=== PATIENT | male | born 1965 | race Caucasian/White ===

== ENCOUNTER 2021-01-16 13:07 | Emergency (ER) | payer OTHER ==
[2021-01-16 14:17] LABS: BASOPHIL 0.4 % (0-2); EOSINOPHIL 5.8 % (0-5); HCT 40.2 % (42.0-52.0); HGB 13.8 g/dl (13.2-18.0); MCH 29.9 pg (25.0-31.0); MCHC 34.3 g/dL (32.0-36.0); MCV 87.2 fL (78.0-100.0); MONOCYTE 7.5 % (0-12); MPV 10.8 fL (6.0-9.5); NRBC 0; PLT 193 K/uL (150-400); RBC 4.61 M/uL (4.70-6.00); RDW 13.6 % (11.5-14.0); WBC 10.6 K/uL (4.0-10.5)
[2021-01-16 14:40] LABS: ALBUMIN 3.8 g/dL (3.4-5.0); BILIRUBIN - TOTAL 0.4 mg/dL (0.2-1.0); BUN/CREAT RATIO (CALC) 12.8 RATIO; CREATININE 0.86 mg/dL (0.67-1.17); POTASSIUM 4.3 mmol/L (3.5-5.1); TOTAL PROTEIN 7.8 g/dL (6.4-8.2)
[2021-01-16 14:47] LABS: BILIRUBIN NEGATIVE (NEGATIVE); BLOOD NEGATIVE Ery/uL (NEGATIVE); CLARITY CLEAR (CLEAR); COLOR YELLOW (YELLOW); GLUCOSE (U) NORMAL (NORMAL); LEUKOCYTES NEGATIVE Leu/uL (NEGATIVE); NITRITE NEGATIVE (NEGATIVE); PROTEIN NEGATIVE (NEGATIVE); SPECIFIC GRAVITY >=1.030 (1.001-1.030); UROBILINOGEN 0.2 mg/dL (0.2-1.0); pH 5.5 (5.0-9.0)
[2021-01-16 14:49] LABS: CKMB <0.5 ng/mL (0.0-3.6)
[2021-01-16 14:54] LABS: AMPHETAMINES NEGATIVE (NEGATIVE); BARBITURATES NEGATIVE (NEGATIVE); ECSTASY (MDMA) NEGATIVE (NEGATIVE); MARIJUANA (THC) NEGATIVE (NEGATIVE); METHADONE NEGATIVE (NEGATIVE); OPIATES NEGATIVE (NEGATIVE); OXYCODONE NEGATIVE (NEGATIVE)
== END 2021-01-16 18:10 | disposition home or self-care (01) ==
LOC: FER 13:07
PROVIDERS: Emergency Medicine
DX: R55 Syncope and collapse (principal); R01.1 Cardiac murmur, unspecified; R53.1 Weakness
CPT/HCPCS: 36415; 71046; 80053; 80305; 81003; 82553; 84484; 85025; 93005